=== PATIENT | male | born 1970 | race Caucasian/White ===

== ENCOUNTER → 2019-06-02 12:59 | Outpatient (CLI) | payer OTHER, SELFPAY ==
[2019-06-02 13:52] LABS: Influenza A - CEPHEID Flu A NEGATIVE (NEGATIVE); Influenza B - CEPHEID Flu B NEGATIVE (NEGATIVE)
== END ==
PROVIDERS: Family Provider Family Medicine; PCP Family Medicine; Visit Provider Physician Assistant
DX: R09.89 Other specified symptoms and signs involving the circulatory and respiratory systems (principal); R51 Headache; R05 Cough
CPT/HCPCS: 87502